=== PATIENT | female | born 1995 | race African-American/Black ===

== ENCOUNTER 2017-02-02 22:02 | Emergency (ER) | payer SELFPAY ==
[~2017-02-02] VITALS: Ht 170.2 cm; Wt 92.0 kg
[2017-02-02] MEDS ORDERED: KETOROLAC 60MG/2ML VIAL IM ONE (23:30)
[2017-02-02 23:44] LABS: BASOPHILS % 0.4 % (0.0-2.0); EOSINOPHILS % 1.8 % (0.0-5.0); HEMATOCRIT. 35.1 % (36.0-48.0); HEMOGLOBIN. 11.5 g/dL (12.0-16.0); MEAN CORPUSCULAR HEMOGLOBIN 27.3 pg (28.0-32.0); MEAN CORPUSCULAR VOLUME 83.2 fL (81.0-99.0); MEAN PLATELET VOLUME 8.4 fl (7.4-10.4); MONOCYTES % 7.9 % (2.0-8.0); NEUTROPHILS % 64.9 % (40.0-76.0); PLATELET 263 x1000/uL (130-400); RED BLOOD CELL COUNT 4.22 mill/uL (4.2-5.4); RED CELL DISTRIBUTION WIDTH 12.8 % (11.6-14.6)
[2017-02-02 23:47] LABS: CLARITY URINE CLOUDY (CLEAR); COLOR URINE YELLOW (YELLOW); KETONES URINE NEGATIVE (NEGATIVE); LEUKOCYTE ESTERASE URINE 2+ (NEGATIVE); NITRITE URINE POSITIVE (NEGATIVE); OCCULT BLOOD URINE 3+ (NEGATIVE); PROTEIN URINE 1+ (NEGATIVE); SPECIFIC GRAVITY URINE 1.015 (1.005-1.030)
[2017-02-02 23:50] LABS: CHLORIDE 107 mEq/L (98-107)
[2017-02-03] LABS: CARBON DIOXIDE 29 mEq/L (21-32)
[2017-02-03 01:10] VITALS: BP 121/70
== END 2017-02-03 01:13 | disposition home or self-care (01) ==
LOC: ER 22:02
DX: N39.0 Urinary tract infection, site not specified (principal)
CPT/HCPCS: 36415; 76770; 80053; 81001; 81025; 83690; 85025; 96372; 99285; J1885; Z7610

== ENCOUNTER 2023-11-12 16:09 | Inpatient (IN) | payer MEDICAID ==
[~2023-11-12] VITALS: Ht 172.7 cm
[2023-11-12] MEDS: MIDAZOLAM HCL 2 MG/2 ML VIAL IV NR (16:35)
[2023-11-12 18:03] LABS: BASOPHILS % 0.3 % (0.0-2.0); EOSINOPHILS % 0.2 % (0.0-5.0); HEMATOCRIT. 36.2 % (36.0-48.0); HEMOGLOBIN. 11.5 g/dL (12.0-16.0); LYMPHOCYTES % 15.6 % (20.0-50.0); MEAN CORPUSCULAR HEMOGLOBIN 27.6 pg (28.0-32.0); MEAN CORPUSCULAR HGB CONC 31.8 g/dL (31.0-37.0); MEAN CORPUSCULAR VOLUME 86.9 fL (81.0-99.0); MEAN PLATELET VOLUME 8.6 fl (7.4-10.4); MONOCYTES % 5.8 % (2.0-8.0); NEUTROPHILS % 78.1 % (40.0-76.0); PLATELET 165 x1000/uL (130-400); RED BLOOD CELL COUNT 4.16 mill/uL (4.2-5.4); RED CELL DISTRIBUTION WIDTH 12.4 % (11.6-14.6); WHITE BLOOD COUNT 7.7 x1000/uL (4.5-11.0)
[2023-11-12 18:04] LABS: CHLORIDE 113 mEq/L (98-107); POTASSIUM 3.7 mEq/L (3.5-5.1); SODIUM 142 mEq/L (136-145)
[2023-11-12 18:05] LABS: CALCIUM 8.4 mg/dL (8.7-10.4); CARBON DIOXIDE 16 mEq/L (21-32)
[2023-11-12 18:08] LABS: INR 1.1; PROTHROMBIN TIME 11.7 sec (9.6-11.0)
[2023-11-12 18:10] LABS: AMMONIA < 17 uMol/L (<32); CREATININE 2.4 mg/dL (0.6-1.0); GLUCOSE 70 mg/dL (70-105); UREA NITROGEN BLOOD 18 mg/dL (9-23)
[2023-11-12 18:11] LABS: ETHANOL BLOOD < 10 mg/dL (<10); TROPONIN I HIGH SENSITIVITY 48 ng/L (3.0-34)
[2023-11-12 18:12] LABS: ACETAMINOPHEN 6 ug/mL (10-30)
[2023-11-12] MEDS: ACETAMINOPHEN 500MG TABLET PO NR (19:10)
[2023-11-12] MEDS: ASPIRIN 325MG EC TABLET PO NR (19:11)
[2023-11-12] MEDS: DEXAMETHASONE 10 MG/ML VIAL IV NR (19:16)
[2023-11-12] MEDS: FAMOTIDINE 20MG/2ML VIAL IV NR (19:16)
[2023-11-12] MEDS: DIPHENHYDRAMINE 50MG/ML VIAL IV NR (19:16)
[2023-11-12] MEDS ORDERED: IPRATROPIUM/ALBUTEROL 0.5-3(2.5)MG/3ML NEB HHN PRN (20:00)
[2023-11-12] MEDS ORDERED: ACETAMINOPHEN 325MG TABLET PO PRN (20:00)
[2023-11-12] MEDS ORDERED: GUAIFENESIN 200MG/10ML SUGAR FREE UDC PO PRN (20:00)
[2023-11-12] MEDS ORDERED: MAGNESIUM/ALUMINUM HYDROXIDE/SIMETHICONE 30ML UDC PO PRN (20:00)
[2023-11-12] MEDS ORDERED: DEXTROSE 50% WATER 50ML SYRINGE IV PRN (20:30)
[2023-11-12] MEDS: LORAZEPAM 2MG/ML INJ IV PRN (21:08)
[2023-11-12] MEDS: BLOOD SUGAR DIAGNOSTIC STRIP TEST SCH (21:28)
[2023-11-12] MEDS: LEVETIRACETAM 500MG PREMIX 100 ML IV NR (21:31)
[2023-11-12 22:10] LABS: IRON 38 ug/dL (50-170)
[2023-11-12 22:12] LABS: PHOSPHORUS 4.3 mg/dL (2.5-4.9)
[2023-11-12 22:13] LABS: TOTAL IRON BINDING CAPACITY 369 ug/dl (250-425)
[2023-11-12 22:22] LABS: HCG SCREEN NEGATIVE
[2023-11-12 23:25] LABS: FOLIC ACID (FOLATE) SERUM 8.55 ng/mL (>5.38); VITAMIN B12 SERUM 237 pg/mL (211-911)
[2023-11-13 00:04] LABS: TROPONIN I HIGH SENSITIVITY 107 ng/L (3.0-34)
[2023-11-13] MEDS: DEXT 5%/0.45% NACL 1000ML 1,000 ML IV ONE (01:33)
[2023-11-13] MEDS ORDERED: *PATIENT'S OWN MEDICATION STORAGE XX SCH (05:45)
[2023-11-13 06:59] LABS: POTASSIUM 4.6 mEq/L (3.5-5.1)
[2023-11-13 07:00] LABS: CALCIUM 8.1 mg/dL (8.7-10.4)
[2023-11-13 07:04] LABS: BASOPHILS % 0.3 % (0.0-2.0); HEMATOCRIT. 32.7 % (36.0-48.0); HEMOGLOBIN. 10.7 g/dL (12.0-16.0); LYMPHOCYTES % 18.4 % (20.0-50.0); MEAN CORPUSCULAR HEMOGLOBIN 27.2 pg (28.0-32.0); MEAN CORPUSCULAR HGB CONC 32.7 g/dL (31.0-37.0); MEAN CORPUSCULAR VOLUME 83.1 fL (81.0-99.0); MEAN PLATELET VOLUME 8.9 fl (7.4-10.4); MONOCYTES % 2.6 % (2.0-8.0); NEUTROPHILS % 78.7 % (40.0-76.0); PLATELET 176 x1000/uL (130-400); RED BLOOD CELL COUNT 3.94 mill/uL (4.2-5.4); RED CELL DISTRIBUTION WIDTH 12.5 % (11.6-14.6); WHITE BLOOD COUNT 5.2 x1000/uL (4.5-11.0)
[2023-11-13 07:05] LABS: CREATINE KINASE MB FRACTION 1.8 ng/mL (0.5-3.6); CREATININE 2.6 mg/dL (0.6-1.0)
[2023-11-13 07:10] LABS: T4 FREE 0.91 ng/dL (0.89-1.76); THYROID STIMULATING HORMONE 1.91 uIU/mL (0.55-4.78)
[2023-11-13] MEDS ORDERED: LORAZEPAM 2MG/ML INJ IV PRN (08:15)
[2023-11-13] MEDS: LEVETIRACETAM 1000MG PREMIX 100 ML IV SCH (08:16)
[2023-11-13] MEDS: ENOXAPARIN 40MG/0.4ML SYR SUBCUT SCH (10:16)
[2023-11-13] MEDS: FAMOTIDINE 20MG/2ML VIAL IV SCH (10:16)
[2023-11-13] MEDS: HYDRALAZINE 20MG/ML VIAL IV PRN (12:10)
[2023-11-13 13:42] LABS: CREATINE KINASE 353 IU/L (34-145)
[2023-11-13 16:00] VITALS: BP 141/76; PULSE 103; RESP 18; TEMP 36.16956; O2SAT 100
[2023-11-13 16:28] LABS: CREATINE KINASE 365 IU/L (34-145)
[2023-11-13] MEDS: DEXT 5%/0.45% NACL 1000ML 1,000 ML IV SCH (19:32)
[2023-11-13 20:00] VITALS: BP 176/117; PULSE 114; RESP 19; TEMP 37.2252; O2SAT 100
[2023-11-13 20:03] VITALS: BP 141/76; PULSE 103; RESP 18; TEMP 36.1956
[2023-11-13] MEDS: FERROUS SULFATE 325MG TABLET PO SCH (20:26)
[2023-11-13] MEDS: CLONIDINE 0.1MG TABLET PO PRN (20:27)
[2023-11-14] VITALS (7 sets, daily range): BP systolic 139–160; BP diastolic 96–110; PULSE 47–107; RESP 14–19; TEMP 36.28068–36.61404; O2SAT 98–100
[2023-11-14 01:14] LABS: CREATINE KINASE 326 IU/L (34-145)
[2023-11-14 01:18] LABS: TROPONIN I HIGH SENSITIVITY 85 ng/L (3.0-34)
[2023-11-14] MEDS: DIPHENHYDRAMINE 50MG/ML VIAL IV NR (02:40)
[2023-11-14] MEDS: HYDROCHLOROTHIAZIDE 25MG TABLET PO SCH (09:25)
[2023-11-14 11:45] LABS: CLARITY URINE CLOUDY (CLEAR); COLOR URINE ORANGE (YELLOW); GLUCOSE URINE NEGATIVE (NEGATIVE); KETONES URINE NEGATIVE (NEGATIVE); LEUKOCYTE ESTERASE URINE TRACE (NEGATIVE); NITRITE URINE POSITIVE (NEGATIVE); OCCULT BLOOD URINE 3+ (NEGATIVE); PROTEIN URINE 4+ (NEGATIVE)
[2023-11-14 12:06] LABS: BACTERIA URINE 4+; RBC URINE 50-100 /hpf (0-2); SQUAMOUS EPITHELIAL CELL URINE 3+ /lpf (RARE/1+); YEAST URINE NONE SEEN
[2023-11-14 12:09] LABS: *AMPHETAMINES SCREEN URINE NEGATIVE (NEGATIVE); *BARBITURATES SCREEN URINE NEGATIVE (NEGATIVE); *BENZODIAZEPINES SCREEN URINE PRESUMPTIVE POSITIVE (NEGATIVE); *COCAINE SCREEN URINE NEGATIVE (NEGATIVE); METHADONE URINE SCREEN NEGATIVE (NEGATIVE); OPIATES URINE SCREEN NEGATIVE (NEGATIVE)
[2023-11-14 12:10] LABS: CANNABINOID URINE SCREEN PRESUMPTIVE POSITIVE (NEGATIVE); ECSTASY MDMA SCREEN URINE NEGATIVE (NEGATIVE); PHENCYCLIDINE URINE SCREEN NEGATIVE (NEGATIVE)
[2023-11-14] MEDS: ACETAMINOPHEN 325MG TABLET PO PRN (16:09)
[2023-11-14 16:30] LABS: POTASSIUM 3.9 mEq/L (3.5-5.1)
[2023-11-14 16:31] LABS: CALCIUM 7.7 mg/dL (8.7-10.4)
[2023-11-14 16:36] LABS: CREATININE 2.4 mg/dL (0.6-1.0)
[2023-11-14] MEDS: DOCUSATE SODIUM 100MG CAPSULE PO PRN (17:55)
[2023-11-14] MEDS: CEFTRIAXONE 1GM/50ML 50 ML IV SCH (20:32)
[2023-11-14 22:30] LABS: BASOPHILS % 0.3 % (0.0-2.0); EOSINOPHILS % 0.3 % (0.0-5.0); HEMATOCRIT. 28.2 % (36.0-48.0); HEMOGLOBIN. 9.4 g/dL (12.0-16.0); LYMPHOCYTES % 26.5 % (20.0-50.0); MEAN CORPUSCULAR HEMOGLOBIN 27.5 pg (28.0-32.0); MEAN CORPUSCULAR HGB CONC 33.2 g/dL (31.0-37.0); MEAN CORPUSCULAR VOLUME 82.8 fL (81.0-99.0); MEAN PLATELET VOLUME 8.6 fl (7.4-10.4); MONOCYTES % 7.7 % (2.0-8.0); NEUTROPHILS % 65.2 % (40.0-76.0); PLATELET 144 x1000/uL (130-400); RED BLOOD CELL COUNT 3.41 mill/uL (4.2-5.4); RED CELL DISTRIBUTION WIDTH 12.5 % (11.6-14.6); WHITE BLOOD COUNT 6.8 x1000/uL (4.5-11.0)
[2023-11-15 04:00] VITALS: BP 151/96; PULSE 92; RESP 20; TEMP 36.3918; O2SAT 100
[2023-11-15 08:00] VITALS: BP 168/114; PULSE 86; RESP 20; TEMP 36.44736; O2SAT 100
[2023-11-15] MEDS: ONDANSETRON HCL 4MG/2ML INJ IV PRN (09:07)
[2023-11-15] MEDS: LEVETIRACETAM 500MG TABLET PO NR (11:55)
[2023-11-15 12:00] VITALS: BP 159/104; PULSE 116; RESP 18; TEMP 36.55848; O2SAT 100
[2023-11-15 16:00] VITALS: BP 168/116; PULSE 98; RESP 18; TEMP 37.2252; O2SAT 100
[2023-11-15 17:14] LABS: CALCIUM 7.9 mg/dL (8.7-10.4); POTASSIUM 3.8 mEq/L (3.5-5.1)
[2023-11-15 17:15] LABS: BASOPHILS % 0.3 % (0.0-2.0); EOSINOPHILS % 0.3 % (0.0-5.0); HEMATOCRIT. 29.1 % (36.0-48.0); HEMOGLOBIN. 9.5 g/dL (12.0-16.0); LYMPHOCYTES % 22.5 % (20.0-50.0); MEAN CORPUSCULAR HEMOGLOBIN 27.1 pg (28.0-32.0); MEAN CORPUSCULAR HGB CONC 32.7 g/dL (31.0-37.0); MEAN PLATELET VOLUME 8.8 fl (7.4-10.4); MONOCYTES % 7.7 % (2.0-8.0); NEUTROPHILS % 69.2 % (40.0-76.0); PLATELET 129 x1000/uL (130-400); RED CELL DISTRIBUTION WIDTH 12.3 % (11.6-14.6); WHITE BLOOD COUNT 6.3 x1000/uL (4.5-11.0)
[2023-11-15 17:20] LABS: CREATININE 2.3 mg/dL (0.6-1.0)
[2023-11-15 20:00] VITALS: BP 156/103; PULSE 94; RESP 18; TEMP 37.28076; O2SAT 99
[2023-11-15] MEDS: LEVETIRACETAM 500MG TABLET PO SCH (20:19)
[2023-11-16] VITALS: BP 133/97; PULSE 91; RESP 18; TEMP 36.61404; O2SAT 99
[2023-11-16 04:00] VITALS: BP 142/98; PULSE 102; RESP 18; TEMP 36.61404; O2SAT 99
[2023-11-16 04:41] LABS: BASOPHILS % 0.5 % (0.0-2.0); EOSINOPHILS % 0.7 % (0.0-5.0); HEMATOCRIT. 29.6 % (36.0-48.0); HEMOGLOBIN. 9.5 g/dL (12.0-16.0); MEAN CORPUSCULAR HEMOGLOBIN 26.5 pg (28.0-32.0); MEAN CORPUSCULAR HGB CONC 32.1 g/dL (31.0-37.0); MEAN CORPUSCULAR VOLUME 82.5 fL (81.0-99.0); MEAN PLATELET VOLUME 8.9 fl (7.4-10.4); NEUTROPHILS % 61.8 % (40.0-76.0); PLATELET 123 x1000/uL (130-400); RED BLOOD CELL COUNT 3.59 mill/uL (4.2-5.4); RED CELL DISTRIBUTION WIDTH 12.6 % (11.6-14.6); WHITE BLOOD COUNT 5.3 x1000/uL (4.5-11.0)
[2023-11-16 04:43] LABS: POTASSIUM 3.9 mEq/L (3.5-5.1)
[2023-11-16 04:44] LABS: CALCIUM 7.7 mg/dL (8.7-10.4)
[2023-11-16 04:48] LABS: CREATININE 2.3 mg/dL (0.6-1.0)
[2023-11-16 08:00] VITALS: BP 153/100; PULSE 101; RESP 19; TEMP 36.61404; O2SAT 98
[2023-11-16] MEDS ORDERED: KEPP500 PO (12:55)
[2023-11-16] MEDS ORDERED: FAMO-135 MT (12:55)
[2023-11-16] MEDS ORDERED: TOPUD PO (12:55)
[2023-11-16] MEDS ORDERED: FERR-63 PO (12:55)
[2023-11-16] MEDS ORDERED: HYDR25TA MT (12:55)
[2023-11-16 16:00] VITALS: BP 162/110; PULSE 90; RESP 19; TEMP 36.72516; O2SAT 99
[2023-11-16] MEDS: HYDROCHLOROTHIAZIDE 25MG TABLET PO SCH (17:12)
[2023-11-16 20:00] VITALS: BP 167/116; PULSE 95; RESP 19; TEMP 36.61404; O2SAT 100
[2023-11-17] VITALS: BP 142/93; PULSE 96; RESP 19; TEMP 38.22528; O2SAT 100
[2023-11-17 04:00] VITALS: BP 165/119; PULSE 108; RESP 18; TEMP 36.89184; O2SAT 99
[2023-11-17 08:00] VITALS: BP 150/118; PULSE 98; RESP 20; TEMP 36.72516; O2SAT 98
[2023-11-17 12:00] VITALS: BP 166/120; PULSE 103; RESP 20; TEMP 36.33624; O2SAT 99
[2023-11-17 16:00] VITALS: BP 144/103; PULSE 101; RESP 20; TEMP 37.05852; O2SAT 98
[2023-11-17] MEDS: HYDROCHLOROTHIAZIDE 25MG TABLET PO SCH (17:27)
[2023-11-17 20:00] VITALS: BP 144/100; PULSE 85; RESP 18; TEMP 36.61404; O2SAT 100
[2023-11-18] VITALS: BP 147/108; PULSE 96; RESP 17; TEMP 36.89184; O2SAT 100
[2023-11-18 04:00] VITALS: BP 146/93; PULSE 96; RESP 17; TEMP 36.72516; O2SAT 100
[2023-11-18 08:00] VITALS: BP 165/89; PULSE 92; RESP 18; TEMP 36.72516; O2SAT 99
[2023-11-18 11:37] LABS: BASOPHILS % 0.3 % (0.0-2.0); EOSINOPHILS % 0.9 % (0.0-5.0); HEMATOCRIT. 32.5 % (36.0-48.0); HEMOGLOBIN. 10.5 g/dL (12.0-16.0); LYMPHOCYTES % 21.6 % (20.0-50.0); MEAN CORPUSCULAR HEMOGLOBIN 26.8 pg (28.0-32.0); MEAN CORPUSCULAR HGB CONC 32.4 g/dL (31.0-37.0); MEAN CORPUSCULAR VOLUME 82.6 fL (81.0-99.0); MONOCYTES % 6.6 % (2.0-8.0); NEUTROPHILS % 70.6 % (40.0-76.0); PLATELET 120 x1000/uL (130-400); RED BLOOD CELL COUNT 3.93 mill/uL (4.2-5.4); RED CELL DISTRIBUTION WIDTH 12.7 % (11.6-14.6); WHITE BLOOD COUNT 6.6 x1000/uL (4.5-11.0)
[2023-11-18 11:49] LABS: POTASSIUM 4.2 mEq/L (3.5-5.1)
[2023-11-18 11:51] LABS: CALCIUM 8.1 mg/dL (8.7-10.4)
[2023-11-18 11:56] LABS: CREATININE 2.2 mg/dL (0.6-1.0)
[2023-11-18 12:00] VITALS: BP 158/112; PULSE 97; RESP 18; TEMP 36.61404; O2SAT 100
[2023-11-18] MEDS: NIFEDIPINE XL 30MG TAB PO SCH (12:05)
[2023-11-18 14:22] LABS: CLARITY URINE CLEAR (CLEAR); COLOR URINE YELLOW (YELLOW); GLUCOSE URINE NEGATIVE (NEGATIVE); KETONES URINE NEGATIVE (NEGATIVE); LEUKOCYTE ESTERASE URINE TRACE (NEGATIVE); NITRITE URINE NEGATIVE (NEGATIVE); OCCULT BLOOD URINE 3+ (NEGATIVE); PH URINE 6.5 (4.5-8.0); PROTEIN URINE 4+ (NEGATIVE); UROBILINOGEN URINE 0.2 E.U./dL (0.2-1.0)
[2023-11-18 14:33] LABS: BACTERIA URINE TRACE; SQUAMOUS EPITHELIAL CELL URINE 1+ /lpf (RARE/1+); YEAST URINE NONE SEEN
[2023-11-18 14:38] LABS: CREATININE URINE RANDOM 62.7 mg/dL
[2023-11-18 16:00] VITALS: BP 144/100; PULSE 95; RESP 18; TEMP 36.6696; O2SAT 99
[2023-11-19 00:25] VITALS: BP 155/96; PULSE 95; RESP 18; TEMP 36.55848; O2SAT 98
[2023-11-19 00:51] VITALS: BP 152/98; PULSE 130; RESP 18; TEMP 36.78072; O2SAT 98
[2023-11-19 05:56] LABS: CARBON DIOXIDE 21 mEq/L (21-32); CHLORIDE 109 mEq/L (98-107); POTASSIUM 4.3 mEq/L (3.5-5.1); SODIUM 137 mEq/L (136-145)
[2023-11-19 05:57] LABS: CALCIUM 7.8 mg/dL (8.7-10.4)
[2023-11-19 06:01] LABS: CREATININE 2.5 mg/dL (0.6-1.0); GLUCOSE 102 mg/dL (70-105)
[2023-11-19 06:02] LABS: UREA NITROGEN BLOOD 22 mg/dL (9-23)
[2023-11-19 06:04] LABS: PHOSPHORUS 4.1 mg/dL (2.5-4.9)
[2023-11-19] MEDS: NIFEDIPINE XL 30MG TAB PO SCH (06:18)
[2023-11-19 06:21] LABS: BASOPHILS % 0.4 % (0.0-2.0); EOSINOPHILS % 0.3 % (0.0-5.0); HEMATOCRIT. 27.5 % (36.0-48.0); LYMPHOCYTES % 14.7 % (20.0-50.0); MEAN CORPUSCULAR HEMOGLOBIN 26.8 pg (28.0-32.0); MEAN CORPUSCULAR HGB CONC 32.7 g/dL (31.0-37.0); MEAN CORPUSCULAR VOLUME 81.8 fL (81.0-99.0); MEAN PLATELET VOLUME 9.1 fl (7.4-10.4); MONOCYTES % 7.3 % (2.0-8.0); NEUTROPHILS % 77.3 % (40.0-76.0); PLATELET 89 x1000/uL (130-400); RED BLOOD CELL COUNT 3.36 mill/uL (4.2-5.4); RED CELL DISTRIBUTION WIDTH 12.6 % (11.6-14.6)
[2023-11-19 08:00] VITALS: BP 129/60; PULSE 110; RESP 16; TEMP 37.16964; O2SAT 99
[2023-11-19] MEDS: LOSARTAN 25 MG TABLET PO SCH (09:57)
[2023-11-19 12:00] VITALS: BP 151/66; PULSE 102; RESP 16; TEMP 36.44736; O2SAT 98
[2023-11-19 16:00] VITALS: BP 152/60; PULSE 106; RESP 18; TEMP 36.61404; O2SAT 99
[2023-11-19 20:00] VITALS: BP 147/88; PULSE 115; RESP 20; TEMP 36.44736; O2SAT 99
[2023-11-20] VITALS (22 sets, daily range): BP systolic 118–161; BP diastolic 60–114; PULSE 88–122; RESP 12–20; TEMP 36.33624–36.83628; O2SAT 96–100
[2023-11-20 06:17] LABS: PROTHROMBIN TIME 11.4 sec (9.6-11.0)
[2023-11-20 06:20] LABS: POTASSIUM 4.2 mEq/L (3.5-5.1)
[2023-11-20 06:26] LABS: CREATININE 2.6 mg/dL (0.6-1.0)
[2023-11-20 06:28] LABS: BASOPHILS % 0.3 % (0.0-2.0); HEMATOCRIT 26.5 % (36.0-48.0); HEMATOCRIT. 26.5 % (36.0-48.0); HEMOGLOBIN 8.8 g/dL (12.0-16.0); HEMOGLOBIN. 8.8 g/dL (12.0-16.0); LYMPHOCYTES % 24.1 % (20.0-50.0); MEAN CORPUSCULAR HGB CONC 33.1 g/dL (31.0-37.0); MEAN CORPUSCULAR VOLUME 81.4 fL (81.0-99.0); MEAN PLATELET VOLUME 9.1 fl (7.4-10.4); MONOCYTES % 11.2 % (2.0-8.0); NEUTROPHILS % 63.4 % (40.0-76.0); PLATELET 89 x1000/uL (130-400); RED BLOOD CELL COUNT 3.26 mill/uL (4.2-5.4); WHITE BLOOD COUNT 5.5 x1000/uL (4.5-11.0)
[2023-11-20] MEDS ORDERED: LIDOCAINE HCL 1% 10 MG/ML 10ML VIAL ONE (07:33)
[2023-11-20] MEDS ORDERED: FENTANYL CITRATE/PF 50MCG/ML 2ML VIAL ONE (08:14)
[2023-11-20] MEDS: FENTANYL CITRATE/PF 50MCG/ML 2ML VIAL IV NR (08:20)
[2023-11-20] MEDS ORDERED: ATOR20TA65 MT (08:30)
[2023-11-20] MEDS ORDERED: NIFEDIPINE 10MG CAPSULE ONE (08:38)
[2023-11-20] MEDS: NIFEDIPINE 10MG CAPSULE PO NR (08:40)
[2023-11-20 09:11] LABS: COMPLEMENT C3 69 mg/dL (82-167); COMPLEMENT C4 4 mg/dL (12-38)
[2023-11-20 12:31] LABS: HEMATOCRIT 29.9 % (36.0-48.0); HEMOGLOBIN 9.8 g/dL (12.0-16.0)
[2023-11-20 13:07] LABS: ANTI-NUCLEAR ANTIBODIES DIRECT Positive (Negative)
[2023-11-20 14:50] LABS: HEMATOCRIT 26.5 % (36.0-48.0); HEMOGLOBIN 8.6 g/dL (12.0-16.0)
[2023-11-20] MEDS ORDERED: LOSA25TA26 PO (15:13)
[2023-11-20] MEDS ORDERED: NIFE-32 MT (15:13)
[2023-11-20] MEDS ORDERED: FAMO20TA8 MT (15:13)
[2023-11-20] MEDS ORDERED: LEVE1000 MT (15:13)
[2023-11-20] MEDS ORDERED: FERR325T6 MT (15:13)
[2023-11-21 17:07] LABS: ANTI-MYELOPEROXIDASE AB < 0.2 units (0.0-0.9); ANTI-PROTEINASE 3 ABS < 0.2 units (0.0-0.9)
[2023-11-22 13:07] LABS: ATYPICAL P-ANCA <1:20 titer (Neg:<1:20); CYTOPLASMIC C-ANCA <1:20 titer (Neg:<1:20); PERINUCLEAR P-ANCA <1:20 titer (Neg:<1:20)
== END 2023-11-20 18:55 | disposition home or self-care (01) | DRG 53 ==
LOC: ER 16:09 → EDBEDREQ 16:24 → 5WST 18:58 → EDBEDREQSVC 19:14 → EDBEDREQ 19:14 → 7EST 11-13 16:25
PROVIDERS: ADMIT Hospitalist; ATTEND Hospitalist
PROC: 4A00X4Z Measurement of Central Nervous Electrical Activity, External Approach (ICD-10-PCS; 2023-11-15)
PROC: 4A00X4Z Measurement of Central Nervous Electrical Activity, External Approach (ICD-10-PCS; 2023-11-18)
PROC: 0TB13ZX Excision of Left Kidney, Percutaneous Approach, Diagnostic (ICD-10-PCS; principal; 2023-11-20)
DX: G40.89 Other seizures (principal); G93.41 Metabolic encephalopathy; I21.A1 Myocardial infarction type 2; N17.9 Acute kidney failure, unspecified; M62.82 Rhabdomyolysis; I12.9 Hypertensive chronic kidney disease with stage 1 through stage 4 chronic kidney disease, or unspecified chronic kidney disease; I16.1 Hypertensive emergency; N18.9 Chronic kidney disease, unspecified; N39.0 Urinary tract infection, site not specified; R31.29 Other microscopic hematuria; Z79.899 Other long term (current) drug therapy; D50.9 Iron deficiency anemia, unspecified; H11.30 Conjunctival hemorrhage, unspecified eye; E86.0 Dehydration; S05.11XA Contusion of eyeball and orbital tissues, right eye, initial encounter; R76.8 Other specified abnormal immunological findings in serum; X58.XXXA Exposure to other specified factors, initial encounter; Y93.89 Activity, other specified; Y92.89 Other specified places as the place of occurrence of the external cause; Y99.8 Other external cause status
CPT/HCPCS: 36415; 70551; 76770; 76942; 80048; 80061; 80305; 80307; 80320; 80329; 81003; 82140; 82550; 82553; 82570; 82607; 82746; 82962; 83520; 83540; 83550; 83735; 84100; 84156; 84439; 84443; 84484; 84703; 85014; 85018; 85025; 86038; 86160; 86256; 88305; 88346; 88348; 93005; 95816; 97116; 97162; 97165; 99291; C1893; J0360; J0696; J1100; J1200; J1650; J1953; J2060; J2250; J2405; J3010; J3490; G0480